=== PATIENT | female | born 1945 | race Caucasian/White ===

== ENCOUNTER 2019-02-11 08:38 | Day surgery (SDC) | payer MEDICARE, OTHER, MEDICAID ==
[2019-02-11] MEDS ORDERED: CEFAZOLIN 2 GM/50 ML (PMX) 50 ML IVPB (11:30)
[2019-02-11] MEDS: SOD CHLORIDE 0.9% 1,000 ML IV (11:45)
[2019-02-11] MEDS ORDERED: MIDAZOLAM 1 MG/ML 2 ML INJ (12:24)
[2019-02-11] MEDS ORDERED: FENTAnyl 50 MCG/ML VIAL (12:24)
[2019-02-11] MEDS: BUPIVACAINE 0.5%/EPI (SDV) 30 ML INJ (12:46)
[2019-02-11] MEDS ORDERED: DIPHENHYDRAMINE 50 MG INJ IV (13:30)
[2019-02-11] MEDS ORDERED: OXYCODONE/ACETAMINOPHEN (5/325) TAB PO ×2 (13:30)
[2019-02-11] MEDS ORDERED: KETOROLAC 30 MG INJ IV (13:30)
[2019-02-11] MEDS ORDERED: hydrALAzine 20 MG INJ IV (13:30)
[2019-02-11] MEDS ORDERED: EPHEDrine 25 MG/5 ML SYG IV (13:30)
[2019-02-11] MEDS ORDERED: FENTAnyl 50 MCG/ML VIAL IV ×3 (13:30)
[2019-02-11] MEDS ORDERED: LABETALOL HCL 20MG INJ IV (13:30)
[2019-02-11] MEDS ORDERED: ALBUTEROL 0.083% (NEB) 2.5 MG/3 ML AMP HHN (13:30)
[2019-02-11] MEDS ORDERED: MEPERIDINE 25 MG INJ IV (13:30)
[2019-02-11] MEDS ORDERED: ONDANSETRON 4 MG INJ IV (13:30)
== END 2019-02-11 14:45 | disposition home or self-care (01) ==
LOC: SDS 08:38
DX: L81.8 Other specified disorders of pigmentation (principal)
CPT/HCPCS: 11402; 88304